=== PATIENT | male | born 1935 | race Caucasian/White ===

== ENCOUNTER → 2017-06-13 | Outpatient (CLI) | payer MEDICARE, OTHER | END | disposition home or self-care (01) | LOC: PCVCCLINIC 15:20 | PROVIDERS: ATTEND Internal Medicine | DX: I25.10 Atherosclerotic heart disease of native coronary artery without angina pectoris (principal); I10 Essential (primary) hypertension; E78.5 Hyperlipidemia, unspecified; K21.9 Gastro-esophageal reflux disease without esophagitis; R94.31 Abnormal electrocardiogram [ECG] [EKG]; I45.10 Unspecified right bundle-branch block; R00.1 Bradycardia, unspecified; Z79.82 Long term (current) use of aspirin; Z79.899 Other long term (current) drug therapy | CPT/HCPCS: 93005; G0463 ==

== ENCOUNTER → 2018-06-13 | Outpatient (CLI) | payer MEDICARE, OTHER | END | disposition home or self-care (01) | LOC: PCVCCLINIC 15:34 | PROVIDERS: ATTEND Internal Medicine | DX: I25.10 Atherosclerotic heart disease of native coronary artery without angina pectoris (principal); E78.5 Hyperlipidemia, unspecified; I10 Essential (primary) hypertension; K21.9 Gastro-esophageal reflux disease without esophagitis | CPT/HCPCS: 80061 ==

== ENCOUNTER → 2019-06-12 | Outpatient (CLI) | payer OTHER | END | disposition home or self-care (01) | LOC: PCVCCLINIC 15:00 | PROVIDERS: ATTEND Internal Medicine | DX: I25.10 Atherosclerotic heart disease of native coronary artery without angina pectoris (principal); R01.1 Cardiac murmur, unspecified; I10 Essential (primary) hypertension; E78.5 Hyperlipidemia, unspecified; Z88.6 Allergy status to analgesic agent | CPT/HCPCS: 93005; G0463 ==

== ENCOUNTER → 2019-06-19 | Outpatient (CLI) | payer OTHER ==
--- NOTE | 2019-06-20 11:01 | PCVCIMAG ---
APPROVED REPORT Study performed: 06/19/2019 13:45:06 EXAM: Comprehensive 2D, Doppler, and color-flow Echocardiogram Patient Location: Echo lab Status: routine BSA: 1.97 HR: 55 bpmBP: 130/72 mmHg Rhythm: Bradycardia Other Information Study Quality: Adequate Risk Factors: Cardiac Risk Factors: HTN Indications Abnormal ECG Murmur CAD 2D Dimensions IVSd: 13.83 (7-11mm)LVOT Diam: 22.07 (18-24mm) LVDd: 37.86 mm PWd: 11.32 (7-11mm)Ascending Ao: 40.10 (22-36mm) LVDs: 23.40 (25-40mm) Left Atrium: 30.67 (27-40mm) Aortic Root: 38.17 mm LV Single Plane 4CH: 64.98 % LV Single Plane 2CH: 64.28 % Biplane EF: 64.4 % Volumes Left Atrial Volume (Systole) Single Plane 4CH: 45.83 mLSingle Plane 2CH: 56.93 mL LA ESV Index: 28.00 mL/m2 Aortic Valve AoV Peak [place].: 3.70 m/s AO Peak Gr.: 54.82 mmHgLVOT Max P.89 mmHg AO Mean Gr.: 26.41 mmHgLVOT Mean P.87 mmHg AO V2 Mean: 2.42 m/sLVOT Max V: 1.11 m/s AO V2 VTI: 91.47 cmLVOT Mean V: 0.82 m/s RD (VTI): 1.16 ud2QTIR V1 VTI: 27.[address] Vmax: 1.14 cm2 AI Vmax: 3.60 m/sSV (LVOT): 105.88 mL AI [place]: 1.84 m/s2 AI PHT: 568.20 ms Mitral Valve E/A Ratio: 0.6 MV Decel. Time: 355.85 ms MV E Max [place].: 0.63 m/s MV A [place].: 1.00 m/s IVRT: 141.87 ms Pulmonary Valve PV Peak [place].: 1.22 m/sPV Peak Gr.: 5.97 mmHg Pulmonary Vein P Vein S: 0.26 m/sP Vein A: 0.30 m/s P Vein D: 0.33 m/sP Vein A Dur.: 162.6 msec P Vein S/D Ratio: 0.79 Tricuspid Valve TR Peak [place].: 2.48 m/s TR Peak Gr.: 24.63 mmHg Left Ventricle The left ventricle is normal size. There is normal LV segmental wall motion. Mild concentric left ventricular hypertrophy. Left ventricular systolic function is normal. The left ventricular ejection fraction is within the normal range. LVEF is 60-65%. Grade I - abnormal relaxation pattern. Right Ventricle The right ventricle is normal size. The right ventricular systolic function is normal. Atria The left atrium size is normal. The right atrium size is normal. Aortic Valve The aortic valve is moderately calcified. The aortic valve is probably bicuspid with raphe. Mild aortic regurgitation. There is moderate valvular aortic stenosis. Calculated aortic valve area is 1.1 cm2 with maximum pressure gradient of 55 mmHg and mean pressure gradient of 26 mmHg. Mitral Valve The mitral valve is normal in structure. Mild mitral regurgitation. No evidence of mitral valve stenosis. Tricuspid Valve The tricuspid valve is normal in structure. Mild tricuspid regurgitation with PAP of 32 mmHg. Pulmonic Valve The pulmonary valve is normal in structure. Trace pulmonic regurgitation. Great Vessels The aortic root is normal in size. 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 IVC is normal in size and collapses >50% with inspiration. Pericardium There is no pericardial effusion. There is no pleural effusion. <Conclusion> The left ventricle is normal size. LVEF is 60-65%. The aortic valve is moderately calcified. The aortic valve is probably bicuspid with raphe. Mild aortic regurgitation. There is moderate valvular aortic stenosis. Calculated aortic valve area is 1.1 cm2 with maximum pressure gradient of 55 mmHg and mean pressure gradient of 26 mmHg. The mitral valve is normal in structure. Mild mitral regurgitation. The tricuspid valve is normal in structure. Mild tricuspid regurgitation with PAP of 32 mmHg. The pulmonary valve is normal in structure. Trace pulmonic regurgitation. 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 The aortic root is normal in size. There is no pericardial effusion.
== END | disposition home or self-care (01) ==
LOC: PCVCIMAG 13:58
PROVIDERS: ATTEND Internal Medicine
DX: I08.1 Rheumatic disorders of both mitral and tricuspid valves (principal); I25.10 Atherosclerotic heart disease of native coronary artery without angina pectoris
CPT/HCPCS: 93306